=== PATIENT | male | born 1950 | race Caucasian/White ===

== ENCOUNTER 2018-04-24 12:41 | Inpatient (IN) | payer MEDICARE, MEDICAID ==
[2018-04-24] MEDS ORDERED: Sodium Chloride 0.9% 1,000 ML IV ONE ×2 (13:12→14:29)
--- NOTE | 2018-04-24 13:12 | ED Physician Chart ---
ED Chief Complaint/HPI - Patient Information Date Seen:: 04/24/18 Time Seen:: 13:00 Chief Complaint:: Fever History of Present Illness:: onset x 2 days of fever, N/V/D; and poor oral intake; no report of trauma, H/As , S/T, neck pain, cough, C/P, SOB, Abd. Pain, A/C, chills, or urinary s/s Allergies:: Allergies Allergy/AdvReac Type Severity Reaction Status Date / Time No Known Allergies Allergy Verified 04/24/18 13:03 Historian:: Patient, EMS Review:: Nurse's Note Reviewed, Old Chart Reviewed, EMS run form Reviewed ED Review of Systems - Review of Systems General/Constitutional: Fever, No chills, No weight loss, Weakness, No diaphoresis, No edema, No loss of appetite Skin: No skin lesions, No rash, No bruising Head: No headache, No light-headedness Eyes: No loss of vision, No pain, No diplopia ENT: No earache, No nasal drainage, No sore throat, No tinnitus Neck: No neck pain, No swelling, No thyromegaly, No stiffness, No mass noted Cardio Vascular: No chest pain, No palpitations, No PND, No orthopnea, No edema Pulmonary: No SOB, No cough, No sputum, No wheezing GI: Nausea, Vomiting, Diarrhea, No pain, No melena, No hematochezia, No constipation, No hematemesis G/U: No dysuria, No frequency, No hematuria, No nacturia Musculoskeletal: No bone or joint pain, No back pain, No muscle pain Endocrine: No polyuria, No polydipsia Psychiatric: Prior psych history, No depression, Anxiety, No suicidal ideation, No homicidal ideation, No auditory hallucination, No visual hallucination Hematopoietic: No bruising, No lymphadenopathy Allergic/Immuno: No urticaria, No angioedema Neurological: No syncope, No focal symptoms, Weakness, No paresthesia, No headache, Seizure, No dizziness, Confusion, No vertigo ED Past Medical History - Past Medical History Obtainable: Yes Past Medical History: HTN, PUD/GERD, Seizures, Dementia Family History: HTN Social History: Non Smoker, No Alcohol, No Drug Use, Single, Care Facility Surgical History: None Psychiatricy History: Dementia Medication: Reviewed ED Physical Exam - Physical Examination General/Constitutional: Awake, Well-developed, well-nourished, Alert, No distress, GCS 15, Non-toxic appearing, Ambulatory Head: Atraumatic Eyes: Lids, conjuctiva normal, PERRL, EOMI Skin: Nl inspection, No rash, No skin lesions, No ecchymosis, Well hydrated, No lymphadenopathy ENMT: External ears, nose nl, TM canals nl, Nasal exam nl, Lips, teeth, gums nl , Oropharynx nl, Tonsils nl Neck: Nontender, Full ROM w/o pain, No JVD, No nuchal rigidity, No bruit, No mass, No stridor Respiratory: Nl effort/Exclusion Other Respiratory comments:: Lungs: + Rales and Rhonchi Cardio Vascular: No murmur, gallop, rubs, NL S1 S2, Carotid/Femoral/Distal pulses equal bilaterally Other Cardio Vascular comments:: Irregular Irregular Rhythm GI: No tenderness/rebounding/guarding, No organomegaly, No hernia, Normal BS's, Nondistended, No mass/bruits, No McBurney tenderness : No CVA tenderness Extremities: No tenderness or effusion, Full ROM, normal strength in all extremities, No edema, Normal digits & nails Neuro/Psych: Alert/oriented, DTR's symmetric, Normal sensory exam, Normal motor strength, Judgement/insight normal, Mood normal, Normal gait, No focal deficits Misc: Normal back, No paraspinal tenderness ED Labs/Radiology/EKG Results - Lab Results Comments:: Reviewed - Radiology Results Comments:: CXR: + Patchy Infiltrate - EKG Interpretations EKG Time:: 13:20 Rate & Rhythm: 114; Atrial Fibrillation Comments:: non-specific st-t changes ED Septic Shock - . Is Septic Shock (SBP<90, OR Lactate>4 mmol\L) present?: No ED Reassessment (Disposition) - Reassessment Reassessment Condition:: Improved - Diagnosis Diagnosis:: Fever; N/V/D; AGE; Atrial Fibrillation;; Hyponatremia; Leukocytosis; PNA; Sepsis
[2018-04-24 13:40] LABS: RED CELL DISTRIBUTION WIDTH 13.1 % (11.5-20.0)
[2018-04-24 13:46] LABS: HEMATOCRIT 41.8 % (41.0-60); HEMOGLOBIN 13.9 gm/dL (12-16); MEAN CELL VOLUME 86.6 fl (80-99); MEAN CORPUSCULAR HEMOGLOBIN 28.7 pg (27.0-31.0); MEAN CORPUSCULAR HGB CONC 33.2 pg (28.0-36.0); MEAN PLATELET VOLUME 7.9 fl; PLATELET COUNT 262 Th/cmm (150-400); RED BLOOD COUNT 4.83 Mil/cmm (3.80-5.80); WHITE BLOOD COUNT 13.1 Th/cmm (4.8-10.8)
[2018-04-24 13:53] LABS: ALB/GLOB RATIO 1.3 (1.0-1.8); ALBUMIN 3.6 gm/dL (4.2-5.5); ALKALINE PHOSPHATASE 46 U/L (34-104); AMYLASE SERUM 23 U/L (29-103); ANION GAP 14.1 (7.0-16.0); BILIRUBIN,TOTAL 0.5 mg/dL (0.3-1.0); BUN - UREA NITROGEN 18 mg/dL (7-25); CALCIUM SERUM 9.1 mg/dL (8.6-10.3); CARBON DIOXIDE 24.4 mEq/L (21.0-31.0); CHLORIDE 99 mEq/L (98-107); CREATININE - SERUM 1.1 mg/dL (0.7-1.3); CREATININE KINASE 128 U/L (30-223); GFR AFRICAN-AMERICAN > 60.0 ml/min (>90); GFR NON AFRICAN-AMERICAN > 60.0 ml/min; GLUCOSE 109 mg/dL (70-105); LIPASE 10 U/L (11-82); POTASSIUM SERUM 4.5 mEq/L (3.5-5.1); SGOT 55 U/L (13-39); SGPT/ALT 17 U/L (7-52); SODIUM SERUM 133 mEq/L (136-145); TOTAL PROTEIN,SERUM 6.4 gm/dL (6.0-8.3)
[2018-04-24 13:54] LABS: INR 1.21 (0.5-1.4); PROTHROMBIN TIME (TEST) 12.5 SECONDS (9.5-11.5)
[2018-04-24 14:00] LABS: TROP I 0.02 ng/mL (0.01-0.05)
[2018-04-24 14:03] LABS: BAND NEUTROPHILE 3 % (0-10); BASOPHIL 0 % (0-3); EOSINOPHIL 0 % (0-5); LYMPHOCYTE 5 % (20-50); MONOCYTE 5 % (2-10); NEUTROPHILS 87 % (40-80)
--- NOTE | 2018-04-24 14:35 | Diagnostic Imaging Report ---
Portable chest x-ray History: Pain Allowing for portable technique the heart size is normal. Atherosclerotic calcification seen in the aorta. No focal pulmonary parenchymal processes. No hilar or mediastinal abnormalities. Impression: 1. No acute abnormalities 2. Atherosclerotic vascular changes
[2018-04-24 14:56] LABS: AMYLASE SERUM 22 U/L (29-103); LIPASE 10 U/L (11-82)
[2018-04-24] MEDS ORDERED: Levofloxacin 500mg/100mL 500 MG/100 ML BAG IV ONE ×2 (15:17→15:29)
[2018-04-24 18:26] LABS: URINE SOURCE MIDSTREAM
[2018-04-24 18:30] LABS: URINE BILIRUBIN NEGATIVE (NEGATIVE); URINE BLOOD NEGATIVE (NEGATIVE); URINE GLUCOSE (UA) NEGATIVE (NEGATIVE); URINE KETONE TRACE mg/dL (NEGATIVE); URINE LEUKOCYTE ESTERASE NEGATIVE (NEGATIVE); URINE MICROSCOPIC INDICATED? YES; URINE NITRATE NEGATIVE (NEGATIVE); URINE PROTEIN TRACE mg/dL (NEGATIVE); URINE UROBILINOGEN 0.2 E.U./dL (0.2 - 1.0)
[2018-04-24 18:35] LABS: URINE CLARITY CLEAR (CLEAR); URINE COLOR YELLOW
[2018-04-24 18:36] LABS: URINE BACTERIA FEW /hpf (NONE SEEN); URINE EPITHELIAL CELLS NONE SEEN /lpf (FEW); URINE RBC NONE SEEN /hpf (0-5); URINE WBC 0-2 /hpf (0-5)
[2018-04-24] MEDS ORDERED: Albuterol Nebulizer 2.5mg/3mL HHN PRN (19:49)
[2018-04-24] MEDS ORDERED: Ipratropium Neb 0.5 mg/2.5 mL UD HHN PRN (19:49)
[2018-04-24] MEDS: D5-0.45NS 1,000 ML IV SCH (23:32)
[2018-04-25 01:28] VITALS: BP 119/86
[2018-04-25] MEDS: Multivitamin w/ Minerals Tab PO SCH (08:55)
[2018-04-25] MEDS: Aspirin 81mg Chewable Tab PO SCH (08:56)
--- NOTE | 2018-04-25 13:16 | History & Physical ---
ADMIT DATE: 04/24/2018 CHIEF COMPLAINT: Urinary frequency with ____ urine and fever. HISTORY OF PRESENT ILLNESS: This is a 67-year-old male with history of Yariel chorea, Parkinson's, seizure, dysphagia from nursing facility, was brought in secondary to fever and a report of abnormal UA Apparently, the patient is positive for E. coli. PAST MEDICAL HISTORY: As mentioned in history of present illness. PAST SURGICAL HISTORY: Unable to obtain from the patient. The patient is a poor historian. ALLERGIES: No known drug allergies. MEDICATIONS: The patient was on Macrobid, Tylenol, vitamin C, aspirin, Sinemet, Questran, Depakote, Colace, Robinul, and multivitamins. FAMILY HISTORY: Noncontributory. SOCIAL HISTORY: The patient is a jail patient, requiring 24-hour total care. REVIEW OF SYSTEMS: This is limited secondary to the patient's current mental state. We will try to obtain more detailed review of system at a later date by talking to family members. His sister, Elva, is at ____. We will also try to get information from nursing staff at [facility] [[email or web address]], , PHYSICAL EXAMINATION: VITAL SIGNS: Blood pressure 131/73, respirations 18, pulse 65, temperature 97.1. GENERAL: Elderly male, appears chronically ill. NECK: Supple. No mass. LUNGS: Equal breath sounds, few rhonchi. HEART: Regular rate and rhythm with systolic ejection murmur. ABDOMEN: Soft, globular. EXTREMITIES: Positive excoriations. LABORATORY DATA: WBC 13, hemoglobin 13, platelets 262, PT 12.5. Sodium 133, potassium 4.5, BUN 18, creatinine 1.1. Electrolytes within normal range. ASSESSMENT AND PLAN: Escherichia coli urinary tract infection reportedly as Extended spectrum beta-lactamases, testicular edema, leukocytosis, , Parkinson disease, seizure, dysphagia, candiduria, and hyponatremia. We will continue the patient on IV antibiotic, IV hydration as well as antifungal. We will start the patient on Merrem. We will continue to monitor the patient closely in telemetry. We will refer the patient to Psychiatry as well as wound care. JOB# [id number]
[2018-04-25] MEDS: Meropenem 500 MG in Sodium Chloride 0.9% 100 ML IV SCH (13:34)
[2018-04-25] MEDS: Fluconazole 100mg/50mL 100 MG/50 ML BOTTLE IV SCH (15:41)
[2018-04-25] MEDS: D5-0.45NS 1,000 ML IV SCH (18:19)
[2018-04-26] MEDS: Meropenem 500 MG in Sodium Chloride 0.9% 100 ML IV SCH ×2 (00:14→13:15)
[2018-04-26 07:40] LABS: EOSINOPHILE ABSOLUTE 0.3 Th/cmm (0.1-0.4); HEMATOCRIT 39.5 % (41.0-60); HEMOGLOBIN 13.1 gm/dL (12-16); LYMPHOCYTE ABSOLUTE 1.4 Th/cmm (1.5-3.0); MEAN CELL VOLUME 87.1 fl (80-99); MEAN CORPUSCULAR HGB CONC 33.3 pg (28.0-36.0); MEAN PLATELET VOLUME 8.2 fl; NEUTROPHILE ABSOLUTE 2.9 Th/cmm (1.8-8.0); PLATELET COUNT 234 Th/cmm (150-400); RED BLOOD COUNT 4.53 Mil/cmm (3.80-5.80); RED CELL DISTRIBUTION WIDTH 13.2 % (11.5-20.0); WHITE BLOOD COUNT 5.6 Th/cmm (4.8-10.8)
[2018-04-26 07:52] LABS: ANION GAP 10.4 (7.0-16.0); BUN - UREA NITROGEN 18 mg/dL (7-25); CALCIUM SERUM 8.8 mg/dL (8.6-10.3); CARBON DIOXIDE 26.8 mEq/L (21.0-31.0); CHLORIDE 104 mEq/L (98-107); CREATININE - SERUM 0.9 mg/dL (0.7-1.3); GFR AFRICAN-AMERICAN > 60.0 ml/min (>90); GFR NON AFRICAN-AMERICAN > 60.0 ml/min; GLUCOSE 92 mg/dL (70-105); MAGNESIUM 2.2 mg/dL (1.9-2.7); POTASSIUM SERUM 4.2 mEq/L (3.5-5.1); SODIUM SERUM 137 mEq/L (136-145)
[2018-04-26 08:08] LABS: NEUTROPHILS 50 % (40-80)
[2018-04-26 08:09] LABS: EOSINOPHIL 5 % (0-5); LYMPHOCYTE 29 % (20-50); MONOCYTE 16 % (2-10); PLATELET ESTIMATE ADEQUATE (NORMAL)
[2018-04-26] MEDS: Multivitamin w/ Minerals Tab PO SCH (10:04)
[2018-04-26] MEDS: Aspirin 81mg Chewable Tab PO SCH (10:06)
--- NOTE | 2018-04-26 11:55 | Internal Medicine Prog Note ---
Internal Medicine Subjective - Subjective Patient seen and examined:: with staff, chart reviewed Patient is:: awake, verbal, interactive, in bed, confused, stares blankly Per staff patient has:: no adverse event, no episodes of fall, poor appetite, poor oral intake, unstable gait, confused, tolerating meds Internal Medicine Objective - Results Result Diagrams: 04/26/18 07:15 04/26/18 07:15 Recent Labs: Laboratory Last Values WBC 5.6 Th/cmm (4.8-10.8) 04/26/18 07:15 RBC 4.53 Mil/cmm (3.80-5.80) 04/26/18 07:15 Hgb 13.1 gm/dL (12-16) 04/26/18 07:15 Hct 39.5 % (41.0-60) L 04/26/18 07:15 MCV 87.1 fl (80-99) 04/26/18 07:15 MCH 29.0 pg (27.0-31.0) 04/26/18 07:15 MCHC Differential 33.3 pg (28.0-36.0) 04/26/18 07:15 RDW 13.2 % (11.5-20.0) 04/26/18 07:15 Plt Count 234 Th/cmm (150-400) 04/26/18 07:15 MPV 8.2 fl 04/26/18 07:15 Add Manual Diff YES 04/26/18 07:15 Band Neutrophils % 3 % (0-10) 04/24/18 13:25 Neutrophils (Manual) 50 % (40-80) 04/26/18 07:15 Lymphocytes 29 % (20-50) 04/26/18 07:15 Monocytes 16 % (2-10) H 04/26/18 07:15 Eosinophils 5 % (0-5) 04/26/18 07:15 Basophils 0 % (0-3) 04/24/18 13:25 Platelet Estimate ADEQUATE (NORMAL) 04/26/18 07:15 PT 12.5 SECONDS (9.5-11.5) H 04/24/18 13:25 INR 1.21 (0.5-1.4) 04/24/18 13:25 PTT (Actin FS) 28.3 SECONDS (26.0-38.0) 04/24/18 13:25 Sodium 137 mEq/L (136-145) 04/26/18 07:15 Potassium 4.2 mEq/L (3.5-5.1) 04/26/18 07:15 Chloride 104 mEq/L (98-107) 04/26/18 07:15 Carbon Dioxide 26.8 mEq/L (21.0-31.0) 04/26/18 07:15 Anion Gap 10.4 (7.0-16.0) 04/26/18 07:15 BUN 18 mg/dL (7-25) 04/26/18 07:15 Creatinine 0.9 mg/dL (0.7-1.3) 04/26/18 07:15 Est GFR ( Amer) > 60.0 ml/min (>90) 04/26/18 07:15 Est GFR (Non-Af Amer) > 60.0 ml/min 04/26/18 07:15 BUN/Creatinine Ratio 20.0 04/26/18 07:15 Glucose 92 mg/dL (70-105) 04/26/18 07:15 Whole Bld Lactic Acid 1.54 mmol/L (0.60-1.99) 04/24/18 13:25 Calcium 8.8 mg/dL (8.6-10.3) 04/26/18 07:15 Magnesium 2.2 mg/dL (1.9-2.7) 04/26/18 07:15 Total Bilirubin 0.5 mg/dL (0.3-1.0) 04/24/18 13:25 AST 55 U/L (13-39) H 04/24/18 13:25 ALT 17 U/L (7-52) 04/24/18 13:25 Alkaline Phosphatase 46 U/L (34-104) 04/24/18 13:25 Ammonia 36 umol/L (16-53) 04/26/18 07:15 Creatine Kinase 128 U/L (30-223) 04/24/18 13:25 Troponin I 0.02 ng/mL (0.01-0.05) 04/24/18 13:25 B-Natriuretic Peptide 278.0 pg/mL (5.0-100.0) H 04/26/18 07:15 Total Protein 6.4 gm/dL (6.0-8.3) 04/24/18 13:25 Albumin 3.6 gm/dL (4.2-5.5) L 04/24/18 13:25 Globulin 2.8 gm/dL 04/24/18 13:25 Albumin/Globulin Ratio 1.3 (1.0-1.8) 04/24/18 13:25 Amylase 22 U/L (29-103) L 04/24/18 13:25 Lipase 10 U/L (11-82) L 04/24/18 13:25 Urine Source MIDSTREAM 04/24/18 18:00 Urine Color YELLOW 04/24/18 18:00 Urine Clarity CLEAR (CLEAR) 04/24/18 18:00 Urine pH 6.0 (4.6 - 8.0) 04/24/18 18:00 Ur Specific [place] >= 1.030 (1.005-1.030) 04/24/18 18:00 Urine Protein TRACE mg/dL (NEGATIVE) 04/24/18 18:00 Urine Glucose (UA) NEGATIVE mg/dL (NEGATIVE) 04/24/18 18:00 Urine Ketones TRACE mg/dL (NEGATIVE) 04/24/18 18:00 Urine Blood NEGATIVE (NEGATIVE) 04/24/18 18:00 Urine Nitrate NEGATIVE (NEGATIVE) 04/24/18 18:00 Urine Bilirubin NEGATIVE (NEGATIVE) 04/24/18 18:00 Urine Urobilinogen 0.2 E.U./dL (0.2 - 1.0) 04/24/18 18:00 Ur Leukocyte Esterase NEGATIVE (NEGATIVE) 04/24/18 18:00 Urine RBC NONE SEEN /hpf (0-5) 04/24/18 18:00 Urine WBC 0-2 /hpf (0-5) 04/24/18 18:00 Ur Epithelial Cells NONE SEEN /lpf (FEW) 04/24/18 18:00 Urine Bacteria FEW /hpf (NONE SEEN) 04/24/18 18:00 Valproic Acid 98.0 ug/mL (50.0-100.0) 04/24/18 13:25 - Physical Exam Vitals and I&O: Vital Signs Temp 97.2 F 04/26/18 11:41 Pulse 91 04/26/18 11:41 Resp 18 04/26/18 11:41 BP 106/67 04/26/18 11:41 Pulse Ox 95 04/26/18 11:41 Intake & Output 04/25/18 04/26/18 04/26/18 18:59 06:59 18:59 Intake Total 1600 Balance 1600 Weight (lbs) 74.843 kg Intake: Intake, IV Amount 1100 D5-0.45NS 1,000 ml @ 80 1000 mls/hr IV .[id number] [facility] Rx #:[id number] Meropenem 500 mg In 100 Sodium Chloride 0.9% 100 ml @ 100 mls/hr IV Q12H [facility] Rx#:[id number] Oral 500 Other: # Voids 3 # Bowel Movements 0 Weight Source Bedscale Active Medications: Current Medications Acetaminophen (Tylenol) 650 mg PO Q4HR PRN PRN Reason: Pain or Fever >101 Stop: 06/23/18 19:47 Albuterol Sulfate (Albuterol 2.5mg/3ml Neb Ud) 2.5 mg HHN Q2HRT PRN PRN Reason: Shortness of Breath or Wheeze Stop: 06/23/18 19:48 Ascorbic Acid (Vitamin C) 500 mg PO DAILY [facility] Stop: 06/24/18 08:59 Last Admin: 04/26/18 10:04 Dose: 500 mg Aspirin (Aspirin Chewable) 81 mg PO DAILY [facility] Stop: 06/24/18 08:59 Last Admin: 04/26/18 10:06 Dose: 81 mg Carbidopa/Levodopa (Sinemet 25 Mg-250 Mg) 1 tab PO BID [facility] Stop: 06/24/18 08:59 Last Admin: 04/26/18 10:06 Dose: 1 tab Cholestyramine Resin (Questran) 4 gm PO BID [facility] Stop: 06/24/18 08:59 Last Admin: 04/26/18 10:07 Dose: 4 gm Divalproex Sodium (Depakote Dr) 500 mg PO BID [facility]; Protocol Stop: 06/24/18 08:59 Last Admin: 04/26/18 10:06 Dose: 500 mg Docusate Sodium (Colace) 100 mg PO BID [facility] Stop: 06/24/18 08:59 Last Admin: 04/26/18 10:06 Dose: 100 mg Glycopyrrolate (Robinul) 1 mg PO BID [facility] Stop: 06/24/18 08:59 Last Admin: 04/26/18 10:41 Dose: 1 mg Heparin Sodium (Porcine) (Heparin) 5,000 units SUBQ Q12HR [facility] Stop: 06/23/18 20:59 Last Admin: 04/26/18 10:08 Dose: 5,000 units Dextrose/Sodium Chloride (D5-0.45ns) 1,000 mls @ 80 mls/hr IV .[id number] [facility] Stop: 06/23/18 20:59 Last Admin: 04/25/18 18:19 Dose: 80 mls/hr Meropenem 500 mg/ Sodium (Chloride) 100 mls @ 100 mls/hr IV Q12H [facility] Stop: 06/24/18 11:59 Last Admin: 04/26/18 00:14 Dose: 100 mls/hr Fluconazole (Diflucan) 100 mg in 50 mls @ 50 mls/hr IV Q24HR [facility] Stop: 06/24/18 13:59 Last Admin: 04/25/18 15:41 Dose: 50 mls/hr Ipratropium [place] (Atrovent Neb 0.5mg/2.5ml) 0.5 mg HHN Q2HRT PRN PRN Reason: Shortness of Breath or Wheeze Stop: 06/23/18 19:48 Mirtazapine (Remeron) 7.5 mg PO HS [facility]; Protocol Stop: 06/25/18 20:59 Ondansetron HCl (Zofran) 4 mg IV Q8H PRN PRN Reason: Nausea / Vomiting Stop: 06/23/18 19:48 General: weak, disheveled HEENT: NC/AT, PERRLA Neck: Supple, No JVD, No thyromegaly Lungs: CTAB Cardiovascular: RRR, Normal S1, Normal S2, with murmur Abdomen: soft, non-tender, globular, positive bowel sound Extremities: excoriation, contracture Neurological: no change, disorganized, muscle weakness, unsteady, spastic - Procedures Procedures: Procedures Procedure Code Date CLOSURE SKIN & SUBCUTANEOUS NEC 86.59 03/18/02 RPR S/N/AX/GEN/TRNK2.6-7.5CM 31507 03/18/02 Internal Medicine Assmt/Plan - Assessment Assessment: ASSESSMENT AND PLAN: Escherichia coli urinary tract infection reportedly as Extended spectrum beta-lactamases, testicular edema, leukocytosis, ___ teresita chorea like__, Parkinson disease, seizure, dysphagia, candiduria, and hyponatremia. - Plan Plan: PLAN: . We will continue the patient on IV antibiotic, IV hydration as well as antifungal. We will start the patient on Merrem. We will continue to monitor the patient closely in telemetry. We will refer the patient to Psychiatry as well as wound care. case discussed with sister
[2018-04-26] MEDS: Fluconazole 100mg/50mL 100 MG/50 ML BOTTLE IV SCH (15:51)
--- NOTE | 2018-04-26 17:45 | Consultation ---
DATE OF CONSULTATION: 04/26/2018 IDENTIFYING INFORMATION: The patient is a 67-year-old male. CHIEF COMPLAINT: I was asked to see this patient because of feeling sad. However, the patient is a poor historian. The patient has Parkinson's disease, Sublette chorea. The patient was unable to give information or talk; however, he can use his hand sometimes to say his age or nod yes or no. The patient is unable tell me the date, where he is, why he is here. However, according to the records, he was admitted to the medical floor for infection. The patient unable to give me more details. MEDICAL HISTORY: As per Dr. Moore. FAMILY HISTORY: Unobtainable. The patient came from a [facility]. MENTAL STATUS EXAMINATION: The patient is appropriately dressed, not well groomed who is alert. He was able to use his hand to tell me his age, so it was unable to express himself clearly, unable to participate in meaningful conversation, unable to make safe plan for self-care. He was described as being sad. When asked if he wants to harm himself, he nodded by no. When asked about any hallucination, he nodded by no. Unable to test his intelligence and memory because he is unable to talk. His insight and judgment are questionable. IMPRESSION: Major depression, recurrent with no psychosis. MEDICAL DIAGNOSES: As per medical doctor. PLAN: I would recommend to add Remeron 7.5 mg at bedtime and I will need follow up with the psychiatrist upon discharge. Thank you very much for allowing me to partake in the care of this most interesting lady. JOB# [id number]
[2018-04-27] MEDS: Meropenem 500 MG in Sodium Chloride 0.9% 100 ML IV SCH ×3 (00:42→23:38)
[2018-04-27] MEDS: D5-0.45NS 1,000 ML IV SCH ×2 (06:04→20:53)
[2018-04-27 08:09] LABS: FOLIC ACID 11.8 ng/mL (>3.0)
[2018-04-27] MEDS: Multivitamin w/ Minerals Tab PO SCH (08:34)
[2018-04-27] MEDS: Aspirin 81mg Chewable Tab PO SCH (08:35)
--- NOTE | 2018-04-27 13:27 | Discharge Summary ---
DATE OF DISCHARGE: 04/27/2018 CHIEF COMPLAINT: Increased urinary frequency and abnormal urine and fever. FINAL DIAGNOSES: Urinary tract infection, positive for Escherichia coli extended-spectrum beta lactamase; testicular edema, leukocytosis, Parkinson, seizure, dysphagia, candiduria, and hyponatremia. HISTORY OF PRESENT ILLNESS: This is a 67-year-old male with history of Yariel chorea like syndrome, Parkinson syndrome, seizure, dysphagia from nursing facility, came in with fever and a report of abnormal UA, admitted for further management. PHYSICAL EXAMINATION: VITAL SIGNS: Blood pressure 130/60, respirations 18, pulse 64, temperature 97.7. GENERAL: Elderly male, appears his age, chronically ill. NECK: Supple. No mass. LUNGS: Equal breath sounds, few rhonchi. HEART: Regular rate and rhythm without appreciable murmur. ABDOMEN: Soft, globular. EXTREMITIES: Positive excoriation, contracture, atrophy. HOSPITAL COURSE: The patient was admitted to telemetry, continued on oxygen, bronchodilator treatment, IV hydration, IV antibiotics, started on Merrem. White count was elevated at 13,000. The patient needs long-term IV antibiotic. The patient to be referred to [place] for long-term acute care. CONDITION ON DISCHARGE: Fair. DISCHARGE INSTRUCTIONS: The patient will be transferred to [place] once bed available. Sister is agreeable with the above plan. JOB# [id number]
[2018-04-27] MEDS: Fluconazole 100mg/50mL 100 MG/50 ML BOTTLE IV SCH (14:21)
--- NOTE | 2018-04-28 00:57 | Progress Notes ---
DATE: 04/27/2018 Case was discussed with staff of the patient, reviewed records. The patient continues to be sad; however, I did initiate him on Remeron yesterday. He is compliant with the medication with no side effects, no sedation, no nausea, no extrapyramidal symptoms. The patient has no known drug allergies. The patient also is dealing with multiple medical issues including Medina's chorea, Parkinson disease, seizure disorder, and dysphagia. He was having fever, abnormal urinalysis. The patient was positive for E. coli and no side effects with the medication, no sedation, no nausea. Thank you very much for allowing me to participate in the care of this most interesting gentleman. JOB# [id number]
[2018-04-28] MEDS: Aspirin 81mg Chewable Tab PO SCH (08:38)
[2018-04-28] MEDS: Multivitamin w/ Minerals Tab PO SCH (08:38)
[2018-04-28] MEDS: D5-0.45NS 1,000 ML IV SCH (08:40)
[2018-04-28] MEDS: Meropenem 500 MG in Sodium Chloride 0.9% 100 ML IV SCH (11:08)
== END 2018-04-28 13:30 | DRG 871 ==
LOC: ER 12:41 → TELE 19:40
PROVIDERS: ADMIT Internal Medicine; ATTEND Internal Medicine
DX: A41.9 Sepsis, unspecified organism (principal); J18.9 Pneumonia, unspecified organism; N39.0 Urinary tract infection, site not specified; E87.1 Hypo-osmolality and hyponatremia; F33.9 Major depressive disorder, recurrent, unspecified; B96.29 Other Escherichia coli [E. coli] as the cause of diseases classified elsewhere; G20 Parkinson's disease; N44.8 Other noninflammatory disorders of the testis; I10 Essential (primary) hypertension; K21.9 Gastro-esophageal reflux disease without esophagitis; F03.90 Unspecified dementia, unspecified severity, without behavioral disturbance, psychotic disturbance, mood disturbance, and anxiety; I48.91 Unspecified atrial fibrillation; K52.9 Noninfective gastroenteritis and colitis, unspecified; B96.20 Unspecified Escherichia coli [E. coli] as the cause of diseases classified elsewhere; G40.909 Epilepsy, unspecified, not intractable, without status epilepticus; R13.10 Dysphagia, unspecified; Z82.49 Family history of ischemic heart disease and other diseases of the circulatory system; Z16.12 Extended spectrum beta lactamase (ESBL) resistance
CPT/HCPCS: 36415-UA; 71045-TC; 80048-TC; 80053-TC; 80164-TC; 81001-TC; 82140-TC; 82150-TC; 82550-TC; 82607-90; 82746-90; 83605; 83690-TC; 83735-TC; 83880-TC; 84484-TC; 85007-TC; 85025-TC; 85610-TC; 85730-TC; 93005; 94760; J1644; J1956; J2185; J7030; X3401; Z7610